=== PATIENT | male | born 1995 | race Caucasian/White ===

== ENCOUNTER 2018-12-02 17:07 | Emergency (ER) | payer OTHER ==
[2018-12-02] MEDS ORDERED: Acetaminophen/HYDROcodone 325-5 MG Tab PO ONE (17:08)
[2018-12-02] MEDS ORDERED: Lidocaine 1% with EPINEPHrine 1:100,000 10 ML MDV INFILT ONE (17:08)
--- NOTE | 2018-12-02 19:12 | EDM.PDOC ---
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 Tetanus indeterminate. - Related Data Allergies Allergy/AdvReac Type Severity Reaction Status Date / Time valdivia Allergy Anaphylactic Verified 12/02/18 17:33 Shock Home Meds: Home Meds NK [No Known Home Meds] 12/02/18 [History] Past Medical History HEENT History: Reports: Impaired Vision - Past Surgical History HEENT Surgical History: Reports: Tonsillectomy Male Surgical History: Reports: Other (See Below) Other Male Surgeries/Procedures: Patient states he had a urethral opening surgery when he was a baby. Social & Family History - Family History Family Medical History: Noncontributory - Tobacco Use Smoking Status *Q: Current Every Day Smoker Years of Tobacco use: 5 Packs/Tins Daily: 0.3 - Caffeine Use Caffeine Use: Reports: Energy Drinks, Soda - Recreational Drug Use Recreational Drug Use: No ED ROS GENERAL - Review of Systems Review Of Systems: ROS reveals no pertinent complaints other than HPI. ED EXAM, SKIN/RASH Exam: See Below Exam Limited By: No Limitations General Appearance: Alert, WD/WN, Mild Distress Eye Exam: Bilateral Eye: Normal Inspection Throat/Mouth: Normal Inspection Head: Atraumatic Neck: Normal Inspection Respiratory/Chest: No Respiratory Distress, Lungs Clear Cardiovascular: Normal Peripheral Pulses, Regular Rate, Rhythm, No Edema, No JVD , No Murmur Peripheral Pulses: 1+: Radial (L), Radial (R) (Good capillary fill fingers,) GI/Abdominal: Normal Bowel Sounds (Male) Exam: Deferred Rectal (Males) Exam: Deferred Back Exam: Normal Inspection Neurological: Alert, Oriented, CN II-XII Intact, Normal Cognition, Normal Gait, No Motor/Sensory Deficits Psychiatric: Normal Affect, Normal Mood Skin: Warm, Dry, Intact, Normal Color, No Rash, Other ( patient chewes finger nails ; laceration left hand palmar surface. Proximal to the MP joint crosses the distal palmar fold and prox to the MP joints of the second and third metacapal dermisl no loss of sensation. Capillary refill was good. Range of motion fingers and thumb complete. non compromise thenar dermims or tissue) ED SKIN PROCEDURES - Laceration/Wound Repair Left Hand Lac/Wound length In cm: 6 (6 cm laceration into subcutaneous fat. Laceration does not involve any tendinous structures on the palmar surface left nondominant hand. Transects the distal palmar fold. This does not involve any articular surfaces.) Distal NVT: Neuro & Vascular Intact Anesthetic Type: Local Local Anesthesia - Lidocaine (Xylocaine): 2% with EPI Local Anesthetic Volume: 5cc Skin Prep: Chlorhexidine (Hibiciens), Providone-Iodine (Betadine), Other ( Cleansing of hems perform under safe with running water for 8 minutes) Exploration/Debridement/Repair: Wound Explored, Other (Distal wound edge because it was tangential and have the thin flap was excised. Proximal wound is clean and sharp and did not require freshening. 6 stitches of interrupted 4-0 Ethilon placed. No competitions) Closed with: Sutures Suture Size: 4-0 Suture Type: Interrupted Suture Size: 4-0 # of Sutures: 6 Tetanus Status Addressed: Yes (T Dap given the patient 0.5 mL) Complications: No - Additional/Other Procedure(s) Other (Free Text) Procedure(s): KeFlex 500 mg 3 times a day prescribed patient received Keflex 500 mg in the ED 8 tablets hydrocodone dispensed Course - Vital Signs Last Recorded V/S: Last Vital Signs Temp 36.4 C 12/02/18 17:30 Pulse 70 12/02/18 17:30 Resp 16 12/02/18 17:30 BP 157/78 H 12/02/18 17:30 Pulse Ox 100 12/02/18 17:30 Departure - Departure Time of Disposition: 19:00 (Laceration left hand moves single-layer closure) Disposition: Home, Self-Care 01 Condition: Good Clinical Impression: Hand laceration Qualifiers: Encounter type: initial encounter Foreign body presence: without foreign body Laterality: left Qualified Code(s): S61.412A - Laceration without foreign body of left hand, initial encounter - Discharge Information *PRESCRIPTION DRUG MONITORING PROGRAM REVIEWED*: Not Applicable *COPY OF PRESCRIPTION DRUG MONITORING REPORT IN PATIENT STEVE: Not Applicable Referrals: PCP,None [Primary Care Provider] -
[2018-12-02] MEDS ORDERED: Diphtheria,Pertussis(Acell),Tetanus Vaccine 0.5 ML SDV IM ONE (19:17)
[2018-12-02] MEDS ORDERED: Cephalexin 500 MG Cap PO ONE (19:18)
== END 2018-12-02 19:35 | disposition home or self-care (01) ==
LOC: FB.ED 17:07
DX: S61.412A Laceration without foreign body of left hand, initial encounter (principal); Z23 Encounter for immunization; W26.0XXA Contact with knife, initial encounter; Y93.89 Activity, other specified; Y99.0 Civilian activity done for income or pay; F17.200 Nicotine dependence, unspecified, uncomplicated; Z91.018 Allergy to other foods
CPT/HCPCS: 12001; 12002; 90471; 90715; 99283; A9270-GY